=== PATIENT | female | born 1995 ===

== ENCOUNTER 2018-09-18 15:21 | Emergency (ER) | payer OTHER ==
[2018-09-18 15:27] VITALS: TEMP 98.5
[2018-09-18] MEDS ORDERED: DiphenhydrAMINE 50 mg/ml Inj IVP STA (15:30)
[2018-09-18] MEDS ORDERED: DiphenhydrAMINE 50 mg/ml Inj ONE (15:47)
[2018-09-18 16:31] LABS: BASO # 0.1 K/uL (0.0-0.2); BASO % 0.6 % (0.0-2.0); EOS # 0.1 K/uL (0.0-0.7); EOS % 1.7 % (0.0-4.0); HEMOGLOBIN 11.9 g/dL (12.0-16.0); LYMPH # 1.8 K/uL (1.0-4.3); MEAN CELL VOLUME 91.8 fl (81.0-99.0); MEAN CORPUSCULAR HEMOGLOBIN 30.5 pg (27.0-31.0); MEAN CORPUSCULAR HGB CONC 33.2 g/dL (33.0-37.0); MEAN PLATELET VOLUME 10.3 fl (7.2-11.7); MONO # 0.5 K/uL (0.0-0.8); MONO % 5.7 % (0.0-10.0); NEUT # 6.4 K/uL (1.8-7.0); NRBC % 0.1 % (0.0-0.0); RBC 3.89 Mil/uL (3.80-5.20); RED CELL DISTRIBUTION WIDTH 18.2 % (11.5-14.5); WHITE BLOOD COUNT 8.9 K/uL (4.8-10.8)
[2018-09-18 16:38] LABS: ALB/GLOB RATIO 1.5 (1.0-2.1); ALBUMIN 4.4 g/dL (3.5-5.0); ALT/SGPT 32 U/L (9-52); AST/SGOT 27 U/L (14-36); BLOOD UREA NITROGEN 14 mg/dl (7-17); CALCIUM 9.4 mg/dL (8.4-10.2); GFR NON-AFRICAN AMERICAN > 60
--- NOTE | 2018-09-18 17:44 | ED PDOC ---
HPI: Allergic Reaction Time Seen by Provider: 09/18/18 15:29 Chief Complaint (Nursing): Allergic Reaction Chief Complaint (Provider): Tingling in the tongue and throat History Per: Patient History/Exam Limitations: no limitations Onset/Duration Of Symptoms: Mins (20) Additional Complaint(s): 23 yo female with history of peanut allergy presents for evaluation of tingling in the throat and swelling sensation in the tongue. PT states it happened 20 minutes [employer] after eating tacos. Pt states she has eaten there in the past and never had an issue. Pt denies SOB in ER. Pt states she has had to use her epipen in the past. Past Medical History Reviewed: Historical Data, Nursing Documentation, Vital Signs Vital Signs: Last Vital Signs Temp 98.5 F 09/18/18 15:25 Pulse 73 09/18/18 16:34 Resp 16 09/18/18 16:34 BP 112/69 09/18/18 16:34 Pulse Ox 100 09/18/18 16:34 - Medical History PMH: No Chronic Diseases - Surgical History Surgical History: No Surg Hx - Family History Family History: States: No Known Family Hx - Living Arrangements Living Arrangements: With Family - Social History Current smoker - smoking cessation education provided: No - Home Medications Home Medications: Ambulatory Orders Medication Instructions Recorded DiphenhydrAMINE [Benadryl] 50 mg PO Q6H PRN #20 cap 09/18/18 Epinephrine HCl [Epipen 0.3 mg MR ONCE PRN #1 unit 09/18/18 Auto-Injector] Famotidine [Pepcid] 20 mg PO DAILY #5 tab 09/18/18 predniSONE [predniSONE Tab] 20 mg PO DAILY #12 tab 09/18/18 - Allergies Allergies/Adverse Reactions: Allergies Allergy/AdvReac Type Severity Reaction Status Date / Time peanut Allergy ANAPHYLAXIS Verified 09/18/18 15:25 Review of Systems ROS Statement: Except As Marked, All Systems Reviewed And Found Negative Constitutional: Negative for: Fever, Chills ENT: Positive for: Other (Tingling in throat). Negative for: Throat Swelling (Tongue tingling ) Respiratory: Negative for: Cough, Shortness of Breath Physical Exam - Reviewed Nursing Documentation Reviewed: Yes Vital Signs Reviewed: Yes - Physical Exam Appears: Positive for: Well, Non-toxic, No Acute Distress Head Exam: Positive for: ATRAUMATIC, NORMAL INSPECTION, NORMOCEPHALIC Skin: Positive for: Normal Color, Warm, DRY Eye Exam: Positive for: Normal appearance ENT: Positive for: Normal ENT Inspection, Other (Tongue appears normal ). Negative for: Pharyngeal Erythema, Tonsillar Exudate, Tonsillar Swelling Neck: Positive for: Normal, Painless ROM Cardiovascular/Chest: Positive for: Regular Rate, Rhythm Respiratory: Positive for: Normal Breath Sounds. Negative for: Decreased Breath Sounds, Respiratory Distress Back: Positive for: Normal Inspection Extremity: Positive for: Normal ROM Neurologic/Psych: Positive for: Alert, Oriented - Laboratory Results Result Diagrams: 09/18/18 16:20 09/18/18 16:20 - ECG O2 Sat by Pulse Oximetry: 100 Pulse Ox Interpretation: Normal Disposition - Clinical Impression Clinical Impression: Allergic reaction - Patient ED Disposition Is Patient to be Admitted: No Counseled Patient/Family Regarding: Diagnosis, Need For Followup, Rx Given - Disposition Disposition: Routine/Home Disposition Time: 17:44 Condition: GOOD Prescriptions: DiphenhydrAMINE [Benadryl] 50 mg PO Q6H PRN #20 cap PRN Reason: Itching / Pruritus Epinephrine HCl [Epipen Auto-Injector] 0.3 mg MR ONCE PRN #1 unit PRN Reason: Anaphylaxis Famotidine [Pepcid] 20 mg PO DAILY #5 tab predniSONE [predniSONE Tab] 20 mg PO DAILY #12 tab Instructions: Allergy Skin Testing, Drug Allergy
[2018-09-18 18:24] VITALS: PULSE 78; RESP 18; O2SAT 98
[2018-09-18 18:27] VITALS: BP 109/65
== END 2018-09-18 18:27 | disposition home or self-care (01) ==
LOC: H.ER 15:21
DX: Z90.10 Acquired absence of unspecified breast and nipple (principal)
CPT/HCPCS: 80053; 81025; 85025; 96374; 99283; J1200; J2930